=== PATIENT | male | born 2000 | race Caucasian/White ===

== ENCOUNTER 2018-06-10 16:57 | Emergency (ER) | payer SELFPAY ==
[~2018-06-10] VITALS: Ht 185.4 cm; Wt 127.0 kg
[2018-06-10 16:59] VITALS: Ht 185.4 cm; Wt 127.0 kg
[2018-06-10 21:26] VITALS: BP 138/74
== END 2018-06-10 21:26 | disposition home or self-care (01) ==
LOC: ED 16:57
DX: S93.691D Other sprain of right foot, subsequent encounter (principal); S93.491D Sprain of other ligament of right ankle, subsequent encounter; S05.11XD Contusion of eyeball and orbital tissues, right eye, subsequent encounter; M54.2 Cervicalgia; V89.2XXD Person injured in unspecified motor-vehicle accident, traffic, subsequent encounter; S93.401D Sprain of unspecified ligament of right ankle, subsequent encounter
CPT/HCPCS: J2001